=== PATIENT | female | born 1965 | race American Indian/Alaskan Native ===

== ENCOUNTER 2017-02-18 20:50 | Inpatient (IN) | payer MEDICAID, OTHER ==
[2017-02-18 21:51] LABS: BASO % 0.4 % (0.0-2.0); EOS # 0.2 K/uL (0.0-0.7); EOS % 1.6 % (0.0-4.0); HEMATOCRIT 40.8 % (34.0-47.0); LYMPH # 3.5 K/uL (1.0-4.3); LYMPH % 34.4 % (20.0-40.0); MEAN CELL VOLUME 89.7 fL (81.0-99.0); MEAN CORPUSCULAR HGB CONC 32.3 g/dL (33.0-37.0); MONO # 0.7 K/uL (0.0-0.8); MONO % 6.7 % (0.0-10.0); RED CELL DISTRIBUTION WIDTH 12.6 % (11.5-14.5); WHITE BLOOD COUNT 10.1 K/uL (4.8-10.8)
[2017-02-18 22:00] LABS: CHLORIDE 103 mmol/L (98-107); SODIUM 142 mmol/L (132-148)
[2017-02-18 22:03] LABS: CARBON DIOXIDE 25 mmol/L (22-30); GFR AFRICAN-AMERICAN > 60
[2017-02-18 22:04] LABS: ALCOHOL SERUM 10 mg/dl (0-10); BLOOD UREA NITROGEN 16 mg/dL (7-17); CALCIUM 9.4 mg/dl (8.6-10.4); GLUCOSE,RANDOM 97 mg/dL (65-105)
[2017-02-18 23:43] LABS: RBC URINE 2 /hpf (0-3); URINE BILIRUBIN NEGATIVE (NEGATIVE); URINE BLOOD NEGATIVE (NEGATIVE); URINE COLOR Yellow (YELLOW); URINE GLUCOSE (UA) NORMAL (Normal); URINE KETONE NEGATIVE (NEGATIVE); URINE LEUKOCYTE ESTERASE TRACE Leu/uL (Negative); URINE PROTEIN 1+ mg/dL (NEGATIVE); URINE UROBILINOGEN NORMAL mg/dL (0.2-1.0); WBC URINE 8 /hpf (0-5)
--- NOTE | 2017-02-18 23:58 | C.PDOC ---
History Of Present Illness 51 yo female w/PMhx of polysubstance abuse come in request detox. Pt admits, use opiates, xanax, cocaine and alcohol. Last dose was early today. Pt denies any active physical complaints. AAO#3, denies suicidal or homocidal ideation. Ambulate to ED for evaluation, not n any apparent distress. Time Seen by Provider: 02/18/17 21:10 Chief Complaint (Nursing): Substance Abuse History Per: Patient Past Medical History Reviewed: Historical Data, Nursing Documentation, Vital Signs Vital Signs: Last Vital Signs Temp 97.9 F 02/18/17 20:53 Pulse 74 02/18/17 23:56 Resp 20 02/18/17 23:56 BP 141/82 02/18/17 23:56 Pulse Ox 96 02/18/17 23:58 - Medical History PMH: HTN Denies: Diabetes, Hepatitis, HIV, Seizures, Sexually Transmitted Disease Other Surgeries: not contributory Family History: States: No Known Family Hx - Social History Hx Alcohol Use: Yes Hx Substance Use: Yes - Immunization History Hx Tetanus Toxoid Vaccination: No Hx Influenza Vaccination: No Hx Pneumococcal Vaccination: No Review Of Systems Except As Marked, All Systems Reviewed And Found Negative. Constitutional: Negative for: Fever, Chills ENT: Negative for: Throat Pain Cardiovascular: Negative for: Chest Pain, Palpitations Respiratory: Negative for: Cough, Shortness of Breath, SOB with Excertion, Pleuritic Pain, Sputum, Wheezing Gastrointestinal: Negative for: Nausea, Vomiting, Abdominal Pain, Diarrhea, Melena, Hematochezia, Hematemesis, Rectal Pain Genitourinary: Negative for: Dysuria, Frequency, Incontinence Musculoskeletal: Negative for: Neck Pain, Back Pain Skin: Negative for: Bruising Neurological: Negative for: Weakness, Numbness, Altered Mental Status Physical Exam - Physical Exam Appears: Well, Non-toxic, No Acute Distress Skin: Normal Color, Warm, No Rash Head: Atraumatic, Normacephalic Eye(s): bilateral: PERRL Ear(s): Bilateral: Normal Nose: Normal, No Discharge Oral Mucosa: Moist, No Drooling Throat: Normal Neck: Normal, Normal ROM, Supple Chest: Symmetrical Cardiovascular: Rhythm Regular Respiratory: Normal Breath Sounds, No Stridor, No Wheezing Gastrointestinal/Abdominal: Normal Exam, Soft, No Tenderness Back: Normal Inspection, No CVA Tenderness Extremity: Normal ROM, No Pedal Edema, No Deformity Neurological/Psych: Oriented x3, Normal Speech, Normal Motor, Normal Sensation, Normal Reflexes ED Course And Treatment - Laboratory Results Result Diagrams: 02/18/17 21:40 02/18/17 21:40 Lab Interpretation: No Acute Changes Urine POC: Negative O2 Sat by Pulse Oximetry: 96 Pulse Ox Interpretation: Normal Progress Note: On re-evaluation, pt remained stable, afebrile, hemodynamicaly stable. Non-toxic. Ambulatory in ED with stable gait. Neurologicaly intact. Diagnostics review and appears without acute abnormalities. PATIENT IS MEDICALLY CLEARED FOR PES EVALUATION AND FURTHER TREATMENT/DISPOSITION. After pt was seen by PES, admission to offered for detox. Disposition - Disposition Disposition: HOSPITALIZED Disposition Time: 23:30 Condition: STABLE - Clinical Impression Clinical Impression: Drug dependence
[2017-02-19 12:07] LABS: ALB/GLOB RATIO 1.4 (1.0-2.1); ALKALINE PHOSPHATASE 74 U/L (38-126); ALT/SGPT 18 U/L (9-52); AST/SGOT 37 U/L (14-36); BILIRUBIN,DIRECT 0.5 mg/dL (0.0-0.4); BILIRUBIN,TOTAL 0.8 mg/dL (0.2-1.3); TOTAL PROTEIN 7.4 g/dL (6.3-8.3)
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
[2017-02-20 05:53] VITALS: RESP 18
[2017-02-20] MEDS ORDERED: Aluminum Hydroxide/Magnesium Hydroxide Susp (30 mL) PO PRN (10:36)
--- NOTE | 2017-02-20 13:17 | PCM.PYCHPN ---
Psychiatric Progress Note - Psychiatric Progress Note Patient seen today, length of contact: 17 minutes Patient Chief Complaint: "I'm irritable and I don't feel well" Problems Identified/Issues Discussed: The patient is seen, chart reviewed, case discussed Pt reports that she is irritable today and does not want to be around people. She did not sleep last night because she felt nauseous and vomited 2x. She is also complaining of back pain. This morning pt was able to eat breakfast. She says she feels unsteady when walking. She denies any side effects from the medications. Pt spoke about her ovarian cancer diagnosis (now in remission) and how she knows her body and feels like something is wrong now. She says that her energy levels are not the same. Aftercare discussed and pt would like to go to rehab. Denies any S/I. Support and psychoeducation was given. Medication Change: Yes (Methadone and Librium taper) Medical Record Reviewed: Yes Mental Status Examination - Cognitive Function Orientation: Person, Place, Situation, Time Memory: Intact Attention: WNL Concentration: WNL Association: WNL Fund of Knowledge: WNL - Mood Mood: Anxious - Affect Affect: Broad - Speech Speech: Appropriate - Formal Thought Process Formal Thought Process: No Impairment - Suicidal Ideation Suicidal Ideation: No - Homicidal Ideation Homicidal Ideation: No Goal/Treatment Plan - Goal/Treatment Plan Need for Continued Stay: Remain at risks for inpatient hospitalization, Discharge may exacerbated symptoms Progress Toward Problem(s) and Goals/Treatment Plan: Opioid Withdrawal - severe -Methadone taper -CBT -support and education Opioid Use Disorder -Group and Individual therapy -CBT -[place] for abstinence -support and psychoeducation Cocaine Withdrawal -severe -Group and Individual therapy -CBT -support and psychoeducation Cocaine Use Disorder - severe - -Group and Individual therapy - CBT -[place] for abstinence -support and psychoeducation Sedative-Hypnotic Use Withdrawal - Librium taper - as needed medications - support and psychoeducation Sedative-Hypnotic Use Disorder -Group and Individual therapy -CBT -[place] for abstinence -support and psychoeducation Estimated Date of D/C: 02/23/17 - Smoking Cessation Smoking Cessation Initiated: Yes
[2017-02-20] MEDS ORDERED: Magnesium Citrate Oral SOL (300 ml) PO ONE (20:27)
--- NOTE | 2017-02-21 13:15 | PCM.PYCHPN ---
Psychiatric Progress Note - Psychiatric Progress Note Patient seen today, length of contact: 16 minutes Patient Chief Complaint: "I'm feeling better today" Problems Identified/Issues Discussed: The patient is seen, chart reviewed, case discussed Pt reports that her mood has improved. Pt was smiling and laughing. She didn't sleep well last night and was only able to get a few hours. She feels steadier on her feet and denies any nausea and vomiting. Her energy levels are better. She denies any medication side effects. Aftercare was discussed and patient would like to go to rehab. She expressed that she wants her life and career back. She also wants to be there for her children. Support and psychoeducation was given. Medication Change: Yes (Methadone and Librium taper) Medical Record Reviewed: Yes Mental Status Examination - Cognitive Function Orientation: Person, Place, Situation, Time Memory: Intact Attention: WNL Concentration: WNL Association: WNL Fund of Knowledge: WNL - Mood Mood: Neutral - Affect Affect: Broad - Speech Speech: Appropriate - Formal Thought Process Formal Thought Process: No Impairment - Suicidal Ideation Suicidal Ideation: No - Homicidal Ideation Homicidal Ideation: No Goal/Treatment Plan - Goal/Treatment Plan Need for Continued Stay: Remain at risks for inpatient hospitalization, Discharge may exacerbated symptoms Progress Toward Problem(s) and Goals/Treatment Plan: Opioid Withdrawal - severe -Methadone taper -CBT -support and education Opioid Use Disorder -Group and Individual therapy -CBT -[place] for abstinence -support and psychoeducation Cocaine Withdrawal -severe -Group and Individual therapy -CBT -support and psychoeducation Cocaine Use Disorder - severe - Group and Individual therapy - CBT -[place] for abstinence -support and psychoeducation Sedative-Hypnotic Use Withdrawal - Librium taper - as needed medications - support and psychoeducation Sedative-Hypnotic Use Disorder -Group and Individual therapy -CBT -[place] for abstinence -support and psychoeducation Trazodone 100mg for sleep Estimated Date of D/C: 02/23/17
[2017-02-21 13:25] VITALS: BP 151/89; PULSE 92; TEMP 98.4
[2017-02-21 13:51] VITALS: O2SAT 99
--- NOTE | 2017-02-21 19:34 | PCM.PYCHDC ---
Mental Status Examination - Mental Status Examination Orientation: Person, Place, Situation, Time Memory: Intact Mood: Anxious Affect: Constricted Speech: Appropriate Attention: Poor Concentration: Poor Association: WNL Fund of Knowledge: WNL Formal Thought Process: No Impairment Suicidal Ideation: No Current Homicidal Ideation?: No Discharge Summary - Discharge Note Reason for Hospitalization: Heroin detox Psychiatric History (includes Medical, Family, Personal Hx): none Consultations:: List each consultation separately and include: 1. Reason for request. 2. Findings. 3. Follow-up Summary of Hospital Course include:: 1. Description of specific treatment plan utilized for patients during their course of treatmen. 2. Summarize the time- course for resolution of acute symptoms and/or regressed behaviors. 3. Describe issues identified and worked on during hospitalization. 4. Describe medication utilized. 5. Describe medical problems identified and treated. 6. Reassessment of suicide risk Summary of Hospital Course: The pt was admitted and started on treatment with psychotherapy, support, psychoeducation and medications. [place] and CBT used. The pt attended groups and activities, as well as milieu therapy. She was irate and aloof at times All the risks and benefits of medications are discussed and the patient understood and agreed. After care discussed with the patient. She is referred to inpatient rehab and 2 places accepted her to start on [place]; [facility] and [facility] She was first happy and thankful but then she got upset over smt we cannot control (her BP meds could not be filled for 30 days as she had filled them recently and left at home). She was to be dc'ed in AM but she decided to leave [facility]. Risks discussed and she understood. She is warned against jeopardizing her rehab chance. - Final Diagnosis (DSM 5) Condition upon Discharge: STABLE DSM 5: Opioid withdrawal Opioid use d/o - severe Sedative hypnotic use d/o - severe Cocaine use disorder - severe Personality d/o - unspecified Disposition: HOME/ ROUTINE Follow-up Treatment Plan: Continue below medications after discharge. Follow after care plan as discussed, attend rehab on Use relapse prevention skills Return to ER or call 911 if suicidal, homicidal or symptoms relapse. Stay away from stress, alcohol and drugs. Prescriptions/Medication Reconciliation: traZODone [Desyrel] 100 mg PO HS PRN #30 tab PRN Reason: Insomnia - Smoking Cessation Smoking Cessation Medication prescribed: No - Antipsychotic Medications Pt discharged on 2 or more routine antipsychotic medications: No
== END 2017-02-21 17:44 | disposition home or self-care (01) | DRG 745 ==
LOC: C.ER 20:50 → C.7D 02-19 00:17
PROVIDERS: ADMIT Psychiatry & Neurology Psychiatry; ATTEND Psychiatry & Neurology Psychiatry
PROC: HZ2ZZZZ Detoxification Services for Substance Abuse Treatment (ICD-10-PCS; principal; 2017-02-19)
PROC: HZ42ZZZ Group Counseling for Substance Abuse Treatment, Cognitive-Behavioral (ICD-10-PCS; 2017-02-19)
PROC: HZ32ZZZ Individual Counseling for Substance Abuse Treatment, Cognitive-Behavioral (ICD-10-PCS; 2017-02-19)
PROC: HZ59ZZZ Individual Psychotherapy for Substance Abuse Treatment, Supportive (ICD-10-PCS; 2017-02-19)
PROC: HZ46ZZZ Group Counseling for Substance Abuse Treatment, Psychoeducation (ICD-10-PCS; 2017-02-19)
PROC: HZ36ZZZ Individual Counseling for Substance Abuse Treatment, Psychoeducation (ICD-10-PCS; 2017-02-19)
DX: F11.23 Opioid dependence with withdrawal (principal); I10 Essential (primary) hypertension; F14.23 Cocaine dependence with withdrawal; F13.239 Sedative, hypnotic or anxiolytic dependence with withdrawal, unspecified; Z59.0 Homelessness; F60.9 Personality disorder, unspecified

== ENCOUNTER 2017-12-22 20:51 | Inpatient (IN) | payer MEDICAID, OTHER ==
[2017-12-22 21:29] LABS: BASO % 0.5 % (0.0-2.0); EOS # 0.3 K/uL (0.0-0.7); EOS % 3.5 % (0.0-4.0); HEMOGLOBIN 13.9 g/dL (11.0-16.0); LYMPH # 2.6 K/uL (1.0-4.3); LYMPH % 26.7 % (20.0-40.0); MEAN CORPUSCULAR HEMOGLOBIN 30.2 pg (27.0-31.0); MEAN CORPUSCULAR HGB CONC 33.2 g/dL (33.0-37.0); MEAN PLATELET VOLUME 8.2 fL (7.2-11.7); MONO # 0.6 K/uL (0.0-0.8); MONO % 5.9 % (0.0-10.0); NEUT # 6.3 K/uL (1.8-7.0); NEUT % 63.4 % (50.0-75.0); NRBC % 0.1 % (0.0-2.0); RBC 4.59 Mil/uL (3.80-5.20); RED CELL DISTRIBUTION WIDTH 13.5 % (11.5-14.5); WHITE BLOOD COUNT 9.9 K/uL (4.8-10.8)
[2017-12-22 22:07] LABS: ALB/GLOB RATIO 1.3 (1.0-2.1); ALBUMIN 4.4 g/dL (3.5-5.0); ALT/SGPT 16 U/L (9-52); AST/SGOT 27 U/L (14-36); BLOOD UREA NITROGEN 15 mg/dL (7-17); CALCIUM 9.6 mg/dl (8.6-10.4); GFR AFRICAN-AMERICAN > 60; GFR NON-AFRICAN AMERICAN 58
--- NOTE | 2017-12-22 22:15 | C.PDOC ---
History Of Present Illness 52 y/o female presents to ED requesting prescreen for detox. Patient was here last year for the same reason. Admits to Percocet, Heroine, Marijuana, and Cocaine. Denies any physical complaints. Time Seen by Provider: 12/22/17 21:15 Chief Complaint (Nursing): Substance Abuse History Per: Patient History/Exam Limitations: no limitations Onset/Duration Of Symptoms: Hrs Current Symptoms Are (Timing): Still Present Suicide/Self Injury Attempted (Context): None Modifying Factor(s): Marijuana, Cocaine, Other (Percocet and heroine ) Associated Symptoms: denies: Anger, Suicidal Thoughts Involuntary Hold By: None Recent travel outside of the [place]: No Past Medical History Reviewed: Historical Data, Nursing Documentation, Vital Signs Vital Signs: Last Vital Signs Temp 98.3 F 12/22/17 21:05 Pulse 110 H 12/22/17 21:05 Resp 18 12/22/17 21:05 BP 151/90 H 12/22/17 21:05 Pulse Ox 99 12/22/17 22:15 - Medical History PMH: HTN - [facility] DETOXIFICATION SERVICES FOR SUBSTANCE ABUSE TREATMENT (02/19/17) GROUP AUTO DAMAGE ESTIMATOR FOR SUBSTANCE ABUSE TREATMENT, PSYCHOEDUCATION (02/19/17) GROUP AUTO DAMAGE ESTIMATOR FOR SUBSTANCE ABUSE, COGNITIVE BEHAVIORAL (02/19/17) INDIV AUTO DAMAGE ESTIMATOR FOR SUBSTANCE ABUSE TREATMENT, PSYCHOEDUCATION (02/19/17) INDIV AUTO DAMAGE ESTIMATOR FOR SUBSTANCE ABUSE, COGNITIVE BEHAVIORAL (02/19/17) INDIV PSYCHOTHERAPY FOR SUBSTANCE ABUSE TREATMENT, SUPPORT (02/19/17) Family History: States: No Known Family Hx - Social History Hx Alcohol Use: Yes Hx Substance Use: Yes - Immunization History Hx Tetanus Toxoid Vaccination: No Hx Influenza Vaccination: No Hx Pneumococcal Vaccination: No Review Of Systems Constitutional: Negative for: Fever, Chills Cardiovascular: Negative for: Chest Pain, Palpitations Respiratory: Negative for: Shortness of Breath Gastrointestinal: Negative for: Nausea, Vomiting, Abdominal Pain, Diarrhea Neurological: Negative for: Weakness, Numbness Psych: Negative for: Suicidal ideation Physical Exam - Physical Exam Appears: Well, Non-toxic, No Acute Distress Skin: Normal Color, Warm, Dry Head: Atraumatic, Normacephalic Eye(s): bilateral: Normal Inspection Oral Mucosa: Moist Neck: Supple Chest: Symmetrical, No Tenderness Cardiovascular: Rhythm Regular Respiratory: Normal Breath Sounds, No Decreased Breath Sounds, No Rales, No Rhonchi, No Wheezing Gastrointestinal/Abdominal: Soft, No Tenderness, No Distention, No Guarding, No Rebound Neurological/Psych: Oriented x3, Normal Speech, Normal Cognition ED Course And Treatment - Laboratory Results Result Diagrams: 12/22/17 21:27 12/22/17 21:27 Lab Interpretation: Abnormal (tox + cocaine, opiates, cocaine, benzo's, + etoh) O2 Sat by Pulse Oximetry: 99 (RA) Pulse Ox Interpretation: Normal Reevaluation Time: 23:01 Reassessment Condition: Improved Medical Decision Making Medical Decision Making: Ordered blood work and urinalysis. 2300: d/w Crisis, ok to admit to detox Disposition Doctor Will See Patient In The: Hospital Counseled Patient/Family Regarding: Studies Performed, Diagnosis - Disposition Referrals: Elena Ramirez APN [Primary Care Provider] - Disposition: HOSPITALIZED Disposition Time: 23:01 Condition: GOOD Forms: [facility] (Polish) - Clinical Impression Clinical Impression: Polysubstance (including opioids) dependence with physiol dependence - Scribe Statement The provider has reviewed the documentation as recorded by the Scribe Enedelia العراقي All medical record entries made by the Scribe were at my direction and personally dictated by me. I have reviewed the chart and agree that the record accurately reflects my personal performance of the history, physical exam, medical decision making, and the department course for this patient. I have also personally directed, reviewed, and agree with the discharge instructions and disposition.
[2017-12-22 22:20] LABS: HCG,QUALITATIVE URINE NEGATIVE (NEGATIVE)
[2017-12-22 22:23] LABS: SQUAMOUS EPITHIAL 1 /hpf (0-5); URINE BACTERIA OCC (<OCC); URINE BILIRUBIN NEGATIVE (NEGATIVE); URINE BLOOD 1+ (NEGATIVE); URINE CLARITY Hazy (Clear); URINE COLOR Yellow (YELLOW); URINE GLUCOSE (UA) NORMAL (Normal); URINE LEUKOCYTE ESTERASE NEG Leu/uL (Negative); URINE NITRATE NEGATIVE (NEGATIVE); URINE PROTEIN NEGATIVE (NEGATIVE); URINE UROBILINOGEN NORMAL mg/dL (0.2-1.0)
[2017-12-22 22:34] LABS: PHENCYCLIDINE, UR NEGATIVE (NEGATIVE)
[2017-12-22 22:35] LABS: BARBITURATES, UR POSITIVE (NEGATIVE); BENZODIAZEPINES, UR POSITIVE (NEGATIVE); OPIATES, UR POSITIVE (NEGATIVE)
[2017-12-22] MEDS ORDERED: Aluminum Hydroxide/Magnesium Hydroxide Susp (30 mL) PO PRN (23:13)
--- NOTE | 2017-12-22 23:39 | PCM.BM ---
<Evie Palacio - Last Filed: 12/22/17 23:38> Treatment Plan Problems - Problems identified on initial assessmt Ineffective Coping Skills Date Initiated: 12/22/17 Time Initiated: 23:38 Assessment reference: NA Status: Active Treatment assets and liabiliti Patient Assests: ADL independent Patient Liabilities: substance abuse - Milieu Protocol Maintain good personal hygiene: daily Encourage regular showers, daily Remind patient to perform daily oral care, other Assist patient to perform ADL's Maintain personal safety: every shift Educate patient to report safety concerns to staff, every shift Monitor environment for contraband/sharps Medication safety: Monitor for expected outcome, potential side effects: every shift, Assess barriers to learning: every shift, Assess readiness for medication education: every shift <Hima Hernandez - Last Filed: 12/25/17 23:50> - Diagnosis (1) Opioid use disorder, severe, dependence Status: Acute Interventions: 12/25/17 23:50 * Assess 7x/week regarding severity of withdrawal * Educate regarding risks, benefits, side effects and alternatives of medications * Use Motivational Interviewing for abstinence * Use CBT for relapse prevention * Medication management for withdrawal symptoms * Encourage medication assisted treatment *
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
[2017-12-23] MEDS: Multiple Vitamins Tab PO SCH (10:52)
[2017-12-24] MEDS: Multiple Vitamins Tab PO SCH (09:13)
[2017-12-24] MEDS ORDERED: Magnesium Hydroxide Susp 30 ml UD PO ONE (09:17)
--- NOTE | 2017-12-24 12:01 | PCM.PYCHPN ---
Psychiatric Progress Note - Psychiatric Progress Note Patient seen today, length of contact: 15 min Patient Chief Complaint: I came here to get help.' Problems Identified/Issues Discussed: Patient seen and evaluated, chart reviewed and discussed with the nurse. Patient reports improvement in the withdrawal symptoms but still reports nausea , anxiety, and headaches. She reports improvement in her mood and denies any feelings of hopelessness and helplessness. Patient denies any auditory or visual hallucinations, or any psychotic symptoms. She reports improvement in his sleep and appetite. She is tolerating the withdrawal medications and denies any side effects. Supportive therapy and psychoeducation were given. Medication Change: Yes (Librium taper, methadone taper) Medical Record Reviewed: Yes Mental Status Examination - Cognitive Function Orientation: Person, Place, Situation, Time Memory: Intact Attention: WNL Concentration: Poor Association: WNL Fund of Knowledge: Poor - Mood Mood: Anxious - Affect Affect: Constricted - Speech Speech: Soft - Formal Thought Process Formal Thought Process: No Impairment - Suicidal Ideation Suicidal Ideation: No - Homicidal Ideation Homicidal Ideation: No Goal/Treatment Plan - Goal/Treatment Plan Need for Continued Stay: Severe depression anxiety, Severe functional impairment Progress Toward Problem(s) and Goals/Treatment Plan: Alcohol use disorder severe CBT Psychoeducation Supportive therapy, individual therapy Use TX for abstinence Alcohol withdrawal uncomplicated CBT Psychoeducation Supportive therapy, individual therapy Librium when necessary Librium taper Folic acid/thiamine/multivitamin Trazodone 50 mg PO QHS Neurontin 300 mg PO TID Opioid use disorder severe CBT Psychoeducation Supportive therapy, individual therapy Use TX for abstinence Opioid withdrawal CBT Psychoeducation Supportive therapy, individual therapy Clonidine when necessary Methadone taper Cocaine use disorder severe Monitor signs and symptoms Use [place] for abstinence HTN Continue prescribed medications - Smoking Cessation Smoking Cessation Initiated: No
[2017-12-24 13:00] VITALS: RESP 18
[2017-12-25] MEDS: Multiple Vitamins Tab PO SCH (10:24)
[2017-12-25] MEDS: Pantoprazole 20 mg EC Tab PO SCH (10:30)
--- NOTE | 2017-12-25 14:32 | PCM.PYCHPN ---
Psychiatric Progress Note - Psychiatric Progress Note Patient seen today, length of contact: 15 min Patient Chief Complaint: "I'm doing well" Problems Identified/Issues Discussed: The pt is seen, chart reviewed, case discussed with staff. Support given, CBT and VT used briefly Patient reports doing well overall, but does admit to having genralized aches and myalagias as well as some feelings of heart burn associated with eating food. She is otherwise improving slowly and needs more time No SEs from medications, risks discussed. After care discussed Medication Change: Yes (detox changes daily) Medical Record Reviewed: Yes Mental Status Examination - Cognitive Function Orientation: Person, Place, Situation, Time Memory: Intact Attention: WNL Concentration: WNL Association: WNL Fund of Knowledge: WNL - Mood Mood: Anxious - Affect Affect: Constricted - Speech Speech: Soft - Formal Thought Process Formal Thought Process: No Impairment - Suicidal Ideation Suicidal Ideation: No - Homicidal Ideation Homicidal Ideation: No Goal/Treatment Plan - Goal/Treatment Plan Need for Continued Stay: Remain at risks for inpatient hospitalization, Severe depression anxiety, Discharge may exacerbated symptoms, Severe functional impairment Progress Toward Problem(s) and Goals/Treatment Plan: Continue medications Will add Protonix and Maalox prn for acid reflux Support and psychoeducation daily Attend groups and activities daily After care planning by RUFINO Estimated Date of D/C: 12/27/17 - Smoking Cessation Smoking Cessation Initiated: Yes
--- NOTE | 2017-12-25 15:29 | RAD ---
HISTORY: cough COMPARISON: None available. TECHNIQUE: Chest PA and lateral FINDINGS: LUNGS: Mild to moderate interstitial prominence may reflect infection or edema. Please note that chest x-ray has limited sensitivity for the detection of pulmonary masses. PLEURA: No significant pleural effusion identified. No definite pneumothorax . CARDIOVASCULAR: Heart size appears within normal limits. OSSEOUS STRUCTURES: No acute osseous abnormality identified. VISUALIZED UPPER ABDOMEN: Unremarkable. OTHER FINDINGS: None. IMPRESSION: Mild to moderate interstitial prominence may reflect infection or edema.
[2017-12-25] MEDS ORDERED: Magnesium Hydroxide Susp 30 ml UD PO PRN (16:20)
[2017-12-26] MEDS ORDERED: Vitamins A & D Oint UD Foilpak TOP PRN (08:07)
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
[2017-12-26] MEDS: Multiple Vitamins Tab PO SCH (09:15)
[2017-12-26] MEDS: Pantoprazole 20 mg EC Tab PO SCH (09:15)
[2017-12-26 09:20] VITALS: BP 131/84
[2017-12-26 10:02] VITALS: PULSE 93; TEMP 97.7; O2SAT 97
== END 2017-12-26 11:00 | disposition home or self-care (01) | DRG 745 ==
LOC: SUPCPDRO 20:51 → C.ER 20:51 → C.7D 23:02
PROVIDERS: ADMIT Psychiatry & Neurology Psychiatry; ATTEND Psychiatry & Neurology Psychiatry
PROC: HZ2ZZZZ Detoxification Services for Substance Abuse Treatment (ICD-10-PCS; principal; 2017-12-22)
PROC: HZ52ZZZ Individual Psychotherapy for Substance Abuse Treatment, Cognitive-Behavioral (ICD-10-PCS; 2017-12-22)
PROC: HZ42ZZZ Group Counseling for Substance Abuse Treatment, Cognitive-Behavioral (ICD-10-PCS; 2017-12-22)
PROC: HZ59ZZZ Individual Psychotherapy for Substance Abuse Treatment, Supportive (ICD-10-PCS; 2017-12-22)
PROC: HZ56ZZZ Individual Psychotherapy for Substance Abuse Treatment, Psychoeducation (ICD-10-PCS; 2017-12-22)
PROC: HZ46ZZZ Group Counseling for Substance Abuse Treatment, Psychoeducation (ICD-10-PCS; 2017-12-22)
DX: F11.23 Opioid dependence with withdrawal (principal); F13.20 Sedative, hypnotic or anxiolytic dependence, uncomplicated; F10.230 Alcohol dependence with withdrawal, uncomplicated; F14.20 Cocaine dependence, uncomplicated; Y90.2 Blood alcohol level of 40-59 mg/100 ml; K21.9 Gastro-esophageal reflux disease without esophagitis; I10 Essential (primary) hypertension; F17.210 Nicotine dependence, cigarettes, uncomplicated; Z59.0 Homelessness; Z85.43 Personal history of malignant neoplasm of ovary

== ENCOUNTER 2018-03-07 21:44 | Inpatient (IN) | payer MEDICAID, OTHER ==
--- NOTE | 2018-03-07 22:15 | C.PDOC ---
History Of Present Illness The patient presents to the ED requesting alcohol and Xanax detox. Patient reports last use was earlier today. She denies suicidal/homicidal ideation and has no other complaints at this time. Time Seen by Provider: 03/07/18 22:14 History Per: Patient History/Exam Limitations: no limitations Onset/Duration Of Symptoms: Hrs Current Symptoms Are (Timing): Still Present Suicide/Self Injury Attempted (Context): None Modifying Factor(s): Alcohol, Other (Xanax ) Severity: None Pain Scale Rating Of: 0 Associated Symptoms: denies: Suicidal Thoughts, Suicidal Plan Involuntary Hold By: None Recent travel outside of the [place]: No Additional History Per: Patient Past Medical History Reviewed: Historical Data, Nursing Documentation, Vital Signs Vital Signs: Last Vital Signs Temp 98 F 03/07/18 22:17 Pulse 89 03/07/18 22:17 Resp 16 03/07/18 22:17 BP 164/111 H 03/07/18 22:17 Pulse Ox 99 03/07/18 22:59 - Medical History PMH: Fractures, HTN Denies: Diabetes, Hepatitis, HIV, Chronic Kidney Disease, Seizures, Sexually Transmitted Disease Surgical History: No Surg Hx - [facility] Procedures DETOXIFICATION SERVICES FOR SUBSTANCE ABUSE TREATMENT (12/22/17) GROUP [facility] FOR SUBSTANCE ABUSE TREATMENT, PSYCHOEDUCATION (12/22/17) GROUP [facility] FOR SUBSTANCE ABUSE, COGNITIVE BEHAVIORAL (12/22/17) INDIV CR[facility]HE[facility] FOR SUBSTANCE ABUSE TREATMENT, PSYCHOEDUCATION (02/19/17) INDIV CROCHETER HAND FOR SUBSTANCE ABUSE, COGNITIVE BEHAVIORAL (02/19/17) INDIV PSYCHOTHERAPY FOR SUBSTANCE ABUSE TREATMENT, SUPPORT (12/22/17) INDIV PSYCHOTHERAPY FOR SUBSTANCE ABUSE, COGNITIV BEHAVIORAL (12/22/17) INDIV PSYCHOTHERAPY FOR SUBSTANCE ABUSE, PSYCHOEDUCATION (12/22/17) Family History: States: Unknown Family Hx - Social History Hx Alcohol Use: Yes Hx Substance Use: Yes - Immunization History Hx Tetanus Toxoid Vaccination: No Hx Influenza Vaccination: No Hx Pneumococcal Vaccination: No Review Of Systems Constitutional: Negative for: Fever, Chills Cardiovascular: Negative for: Chest Pain, Palpitations Respiratory: Negative for: Cough, Shortness of Breath Gastrointestinal: Negative for: Nausea, Vomiting, Abdominal Pain Skin: Negative for: Rash, Lesions, Jaundice, Bruising Psych: Positive for: Other (alcohol and xanax detox). Negative for: Anxiety, Depression, Suicidal ideation Physical Exam - Physical Exam Appears: Non-toxic, No Acute Distress Skin: Warm, Dry Head: Normacephalic Eye(s): bilateral: Normal Inspection Oral Mucosa: Moist Neck: Supple Chest: Symmetrical, No Deformity, No Tenderness Cardiovascular: Rhythm Regular, No Murmur Respiratory: No Accessory Muscle Use Extremity: Normal ROM, Capillary Refill (less than 2 seconds ) Neurological/Psych: Oriented x3 ED Course And Treatment - Laboratory Results Result Diagrams: 03/07/18 19:30 03/07/18 19:30 O2 Sat by Pulse Oximetry: 99 (on RA) Pulse Ox Interpretation: Normal Progress Note: Bloodwork and urinalysis ordered and reviewed. Disposition Discussed With Dr.: Jared Manzo Comment: accepeted the pt on his service and took over the care at 12:12 AM Doctor Will See Patient In The: Hospital Counseled Patient/Family Regarding: Studies Performed, Diagnosis - Disposition Disposition: HOSPITALIZED Disposition Time: 22:15 Condition: FAIR - POA Present On Arrival: None - Clinical Impression Clinical Impression: Alcohol intoxication, Alcohol abuse - Scribe Statement The provider has reviewed the documentation as recorded by the Scribe (Carolynn Liu) Provider Attestation: All medical record entries made by the Scribe were at my direction and personally dictated by me. I have reviewed the chart and agree that the record accurately reflects my personal performance of the history, physical exam, medical decision making, and the department course for this patient. I have also personally directed, reviewed, and agree with the discharge instructions and disposition. Decision To Admit - Pt Status Changed To: Hospital Disposition Of: Inpatient - Admit Certification Admit to Inpatient:: After my assessment, the patient will require hospitalization for at least two midnights. This is because of the severity of symptoms shown, intensity of services needed, and/or the medical risk in this patient being treated as an outpatient. - InPatient: Physician Admission Certification: I certify that this patient requires 2 or more midnights of care for the following reason:: After my assessment, the patient will require hospitalization for at least two midnights. This is because of the severity of symptoms shown, intensity of services needed, and/or the medical risk in this patient being treated as an outpatient. - . Bed Request Type: Detox Admitting Physician: Jared Manzo Patient Diagnosis: Alcohol intoxication, Alcohol abuse
[2018-03-07 22:16] VITALS: BMI 28.7
[2018-03-07 22:45] LABS: BASO # 0.1 K/uL (0.0-0.2); BASO % 0.8 % (0.0-2.0); EOS # 0.2 K/uL (0.0-0.7); EOS % 2.9 % (0.0-4.0); HEMOGLOBIN 13.9 g/dL (11.0-16.0); LYMPH % 43.2 % (20.0-40.0); MEAN CELL VOLUME 92.6 fL (81.0-99.0); MEAN CORPUSCULAR HEMOGLOBIN 31.4 pg (27.0-31.0); MEAN CORPUSCULAR HGB CONC 33.9 g/dL (33.0-37.0); MEAN PLATELET VOLUME 7.7 fL (7.2-11.7); MONO # 0.4 K/uL (0.0-0.8); MONO % 6.1 % (0.0-10.0); NEUT # 3.2 K/uL (1.8-7.0); RBC 4.42 Mil/uL (3.80-5.20); RED CELL DISTRIBUTION WIDTH 13.4 % (11.5-14.5); WHITE BLOOD COUNT 6.9 K/uL (4.8-10.8)
[2018-03-07 22:49] LABS: HCG,QUALITATIVE URINE NEGATIVE (NEGATIVE)
[2018-03-07 22:53] LABS: SQUAMOUS EPITHIAL 3 /hpf (0-5); URINE BACTERIA OCC (<OCC); URINE BILIRUBIN NEGATIVE (NEGATIVE); URINE CLARITY Clear (Clear); URINE COLOR Yellow (YELLOW); URINE GLUCOSE (UA) NORMAL (Normal); URINE LEUKOCYTE ESTERASE NEG Leu/uL (Negative); URINE PROTEIN NEGATIVE (NEGATIVE); URINE UROBILINOGEN NORMAL mg/dL (0.2-1.0)
[2018-03-07 22:57] LABS: ALB/GLOB RATIO 1.2 (1.0-2.1); ALBUMIN 4.1 g/dL (3.5-5.0); ALT/SGPT 28 U/L (9-52); AST/SGOT 36 U/L (14-36); BLOOD UREA NITROGEN 10 mg/dL (7-17); CALCIUM 9.5 mg/dl (8.6-10.4); GFR AFRICAN-AMERICAN > 60; GFR NON-AFRICAN AMERICAN > 60
[2018-03-07 23:01] LABS: BARBITURATES, UR NEGATIVE (NEGATIVE); BENZODIAZEPINES, UR NEGATIVE (NEGATIVE); OPIATES, UR NEGATIVE (NEGATIVE); PHENCYCLIDINE, UR NEGATIVE (NEGATIVE)
[2018-03-07 23:07] LABS: URINE BLOOD TRACE (NEGATIVE)
[2018-03-08] MEDS ORDERED: Aluminum Hydroxide/Magnesium Hydroxide Susp (30 mL) PO PRN (11:23)
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
--- NOTE | 2018-03-08 14:36 | PCM.BM ---
<TianaErrol - Last Filed: 03/08/18 14:34> Treatment Plan Problems - Problems identified on initial assessmt potential for alcohol withdrawal Date Initiated: 03/08/18 Time Initiated: 14:35 Status: Active Treatment assets and liabiliti Patient Assests: cooperative, ADL independent, negotiates basic needs Patient Liabilities: substance abuse, medical problems - Milieu Protocol Maintain good personal hygiene: daily Encourage regular showers, daily Remind patient to perform daily oral care, daily Assist patient to perform ADL's Conduct patient checks and document Observation sheet: Q15 minutes Maintain personal safety: every shift Educate patient to report safety concerns to staff, every shift Monitor environment for contraband/sharps Medication safety: Monitor for expected outcome, potential side effects: every shift, Assess barriers to learning: every shift, Assess readiness for medication education: every shift Milieu Narrative: Alcohol: CBT/[place] Psychoeducation Supportive therapy, individual therapy Librium taper Folic acid/thiamine/multivitamin Trazodone Neurontin Opioids: CBT/[place] Psychoeducation Supportive therapy, individual therapy Cocaine: Monitor signs and symptoms Use [place] for abstinence sedative/hypnotic use disorder: Monitor signs and symptoms Use [place] for abstinence Gabapentin HTN Continue prescribed medications 33 min Discharge/Continuing Care - Treatment Team Participation Patient/Family/SO Statement: Alcohol: CBT/[place] Psychoeducation Supportive therapy, individual therapy Librium taper Folic acid/thiamine/multivitamin Trazodone Neurontin Opioids: CBT/[place] Psychoeducation Supportive therapy, individual therapy Cocaine: Monitor signs and symptoms Use [place] for abstinence sedative/hypnotic use disorder: Monitor signs and symptoms Use [place] for abstinence Gabapentin HTN Continue prescribed medications 33 min <Hima Hernandez - Last Filed: 03/10/18 10:11> - Diagnosis (1) Alcohol abuse Status: Acute Interventions: 03/10/18 10:11 * Assess 7x/week regarding severity of withdrawal * Educate regarding risks, benefits, side effects and alternatives of medications * Use Motivational Interviewing for abstinence * Use CBT for relapse prevention * Medication management for withdrawal symptoms * Encourage medication assisted treatment * (2) Opioid use disorder, severe, dependence Status: Acute Interventions: 03/10/18 10:11 * Assess 7x/week regarding severity of withdrawal * Educate regarding risks, benefits, side effects and alternatives of medications * Use Motivational Interviewing for abstinence * Use CBT for relapse prevention * Medication management for withdrawal symptoms * Encourage medication assisted treatment *
[2018-03-08] MEDS: Vitamins A & D Oint UD Foilpak TOP SCH (17:23)
[2018-03-08] MEDS: Hydrocortisone 1% Cream (30 GM) TOP SCH (18:43)
[2018-03-09] MEDS: Hydrocortisone 1% Cream (30 GM) TOP SCH ×2 (10:02→17:16)
[2018-03-09] MEDS: Vitamins A & D Oint UD Foilpak TOP SCH ×2 (10:03→17:20)
--- NOTE | 2018-03-09 13:40 | PCM.PYCHPN ---
Psychiatric Progress Note - Psychiatric Progress Note Patient seen today, length of contact: 16 min Patient Chief Complaint: "I have muscle pain, spasms, anxiety" Problems Identified/Issues Discussed: The pt is seen, chart reviewed, case discussed with staff. Support given, CBT and [place] used briefly No new symptoms reported, improving slowly and needs more time She has many somatic complaints No SEs from medications, risks discussed. After care discussed Medication Change: Yes (detox changes daily) Medical Record Reviewed: Yes Mental Status Examination - Cognitive Function Orientation: Person, Place, Situation, Time Memory: Intact Attention: WNL Concentration: Poor Association: WNL Fund of Knowledge: WNL - Mood Mood: Depressed, Anxious - Affect Affect: Constricted - Speech Speech: Appropriate - Formal Thought Process Formal Thought Process: No Impairment - Suicidal Ideation Suicidal Ideation: No - Homicidal Ideation Homicidal Ideation: No Goal/Treatment Plan - Goal/Treatment Plan Need for Continued Stay: Discharge may exacerbated symptoms, Severe functional impairment Progress Toward Problem(s) and Goals/Treatment Plan: Alcohol: CBT/[place] Psychoeducation Supportive therapy, individual therapy Librium taper Folic acid/thiamine/multivitamin Trazodone Neurontin Opioids: CBT/[place] Psychoeducation Supportive therapy, individual therapy Cocaine: Monitor signs and symptoms Use [place] for abstinence sedative/hypnotic use disorder: Monitor signs and symptoms Use [place] for abstinence Gabapentin HTN Continue prescribed medications
[2018-03-09] MEDS: Multiple Vitamins Tab PO SCH (14:12)
[2018-03-10] MEDS: Multiple Vitamins Tab PO SCH (09:19)
[2018-03-10] MEDS: Hydrocortisone 1% Cream (30 GM) TOP SCH ×2 (09:20→18:16)
[2018-03-10] MEDS: Vitamins A & D Oint UD Foilpak TOP SCH ×2 (09:46→18:16)
--- NOTE | 2018-03-10 17:52 | PCM.PYCHPN ---
Psychiatric Progress Note - Psychiatric Progress Note Patient seen today, length of contact: 16 min Patient Chief Complaint: "I have itching" Problems Identified/Issues Discussed: The pt is seen, chart reviewed, case discussed with staff. The pt is compliant with medications and reports no side-effects. Pt stated Methadone is helping her in withdrawal symptoms. Symptoms are improving but needs more time to stabilize. Pt reported that she has itching and need treatment. After care discussed, support and psychoeducation given. DSM 5 Symptoms Update: Alcohol use disorder severe Alcohol withdrawal uncomplicated Opioid use disorder severe, in early remission Cocaine use disorder severe, in early remission Sedative/hypnotic use disorder - mild HTN LBP Medication Change: Yes (detox changes daily) Medical Record Reviewed: Yes Mental Status Examination - Cognitive Function Orientation: Person, Place, Situation, Time Memory: Intact Attention: WNL Concentration: Poor Association: WNL Fund of Knowledge: WNL Decription of patient's judgement and insights: good/good - Mood Mood: Depressed, Anxious - Affect Affect: Constricted - Speech Speech: Appropriate - Formal Thought Process Formal Thought Process: No Impairment Psychotic Thoughts and Behaviors: denied - Suicidal Ideation Suicidal Ideation: No Plan: denied - Homicidal Ideation Homicidal Ideation: No Plan: denied Goal/Treatment Plan - Goal/Treatment Plan Need for Continued Stay: Discharge may exacerbated symptoms, Severe functional impairment Progress Toward Problem(s) and Goals/Treatment Plan: Librium detox Gabapentin for augmentation and rest leg As needed meds and vitamins Attend groups and activities [place] for abstinence and CBT for relapse prevention Support and psychoeducation Estimated Date of D/C: 03/13/18
[2018-03-10] MEDS: Magnesium Hydroxide Susp 30 ml UD PO PRN (20:58)
[2018-03-11] MEDS: Multiple Vitamins Tab PO SCH (10:00)
[2018-03-11] MEDS: Vitamins A & D Oint UD Foilpak TOP SCH ×2 (10:01→17:58)
[2018-03-11] MEDS: Hydrocortisone 1% Cream (30 GM) TOP SCH ×2 (10:06→17:57)
[2018-03-11] MEDS ORDERED: Pneumococcal 23-Valent Vaccine IM ONE (10:15)
--- NOTE | 2018-03-11 13:13 | RAD ---
HISTORY: discharge instructions COMPARISON: December 25, 2017. TECHNIQUE: Chest PA and lateral FINDINGS: LUNGS: Persistent increased interstitial markings likely interstitial lung disease of uncertain etiology. Tiny calcified granuloma less than 3 mm left upper lobe. PLEURA: No significant pleural effusion identified. No pneumothorax apparent. CARDIOVASCULAR: Normal. OSSEOUS STRUCTURES: No significant abnormalities. VISUALIZED UPPER ABDOMEN: Normal. OTHER FINDINGS: None. IMPRESSION: No significant interval change compared to the prior examination(s).
--- NOTE | 2018-03-11 14:33 | PCM.PYCHPN ---
Psychiatric Progress Note - Psychiatric Progress Note Patient seen today, length of contact: 16 min Patient Chief Complaint: "I'm getting better" Problems Identified/Issues Discussed: The pt is seen, chart reviewed, case discussed with staff. The pt is compliant with medications and reports no side-effects. Pt stated Librium is helping her in withdrawal symptoms. Symptoms are improving but needs more time to stabilize. Pt reported that she has itching and need treatment. After care discussed, support and psychoeducation given. DSM 5 Symptoms Update: Alcohol use disorder, severe, dependence Alcohol withdrawal Medication Change: Yes (detox changes daily) Medical Record Reviewed: Yes Mental Status Examination - Cognitive Function Orientation: Person, Place, Situation, Time Memory: Intact Attention: WNL Concentration: Poor Association: WNL Fund of Knowledge: WNL Decription of patient's judgement and insights: good/good Addtional comments: Calm and cooperative - Mood Mood: Anxious - Affect Affect: Constricted - Speech Speech: Appropriate - Formal Thought Process Formal Thought Process: No Impairment Psychotic Thoughts and Behaviors: denied - Suicidal Ideation Suicidal Ideation: No Plan: denied - Homicidal Ideation Homicidal Ideation: No Plan: denied Goal/Treatment Plan - Goal/Treatment Plan Need for Continued Stay: Discharge may exacerbated symptoms, Severe functional impairment Progress Toward Problem(s) and Goals/Treatment Plan: Librium detox Gabapentin for augmentation and rest leg As needed meds and vitamins Attend groups and activities [place] for abstinence and CBT for relapse prevention Support and psychoeducation Estimated Date of D/C: 03/13/18 - Smoking Cessation Smoking Cessation Initiated: Yes
--- NOTE | 2018-03-11 15:00 | CP.PCM.PCO ---
Physician Communication Note - Physician Communication Note Physician Communication Note: Please see note above
[2018-03-11] MEDS: Magnesium Hydroxide Susp 30 ml UD PO PRN (21:01)
[2018-03-12] MEDS: Multiple Vitamins Tab PO SCH (09:19)
[2018-03-12] MEDS: Vitamins A & D Oint UD Foilpak TOP SCH ×2 (09:19→17:18)
[2018-03-12] MEDS: Hydrocortisone 1% Cream (30 GM) TOP SCH ×2 (09:20→17:06)
--- NOTE | 2018-03-12 13:50 | PCM.PYCHPN ---
Psychiatric Progress Note - Psychiatric Progress Note Patient seen today, length of contact: 16 min Patient Chief Complaint: "I am the same" Problems Identified/Issues Discussed: The pt is seen, chart reviewed, case discussed with staff. The pt is compliant with medications and reports no side-effects. Symptoms are improving but needs more time to stabilize. After care discussed, support and psychoeducation given. Still c/o muscle pain and asks for some "libriums" after she leaves here Medication Change: Yes (detox changes daily) Medical Record Reviewed: Yes Mental Status Examination - Cognitive Function Orientation: Person, Place, Situation, Time Memory: Intact Attention: WNL Concentration: Poor Association: WNL Fund of Knowledge: WNL - Mood Mood: Anxious - Affect Affect: Constricted - Speech Speech: Appropriate - Formal Thought Process Formal Thought Process: No Impairment - Suicidal Ideation Suicidal Ideation: No - Homicidal Ideation Homicidal Ideation: No Goal/Treatment Plan - Goal/Treatment Plan Need for Continued Stay: Discharge may exacerbated symptoms, Severe functional impairment Progress Toward Problem(s) and Goals/Treatment Plan: Alcohol: CBT/[place] Psychoeducation Supportive therapy, individual therapy Librium taper Folic acid/thiamine/multivitamin Trazodone Neurontin Opioids: CBT/[place] Psychoeducation Supportive therapy, individual therapy Cocaine: Monitor signs and symptoms Use [place] for abstinence sedative/hypnotic use disorder: Monitor signs and symptoms Use [place] for abstinence Gabapentin HTN Continue prescribed medications Estimated Date of D/C: 03/13/18
[2018-03-13 08:45] VITALS: BP 116/78; PULSE 90; RESP 21; TEMP 97.7; O2SAT 97
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
[2018-03-13] MEDS: Multiple Vitamins Tab PO SCH (09:03)
[2018-03-13] MEDS: Vitamins A & D Oint UD Foilpak TOP SCH (09:03)
[2018-03-13] MEDS: Hydrocortisone 1% Cream (30 GM) TOP SCH (09:04)
== END 2018-03-13 09:30 | disposition home or self-care (01) | DRG 745 ==
LOC: C.ER 21:44 → C.7D 03-08 00:11
PROVIDERS: ADMIT Psychiatry & Neurology Psychiatry; ATTEND Psychiatry & Neurology Psychiatry
PROC: HZ2ZZZZ Detoxification Services for Substance Abuse Treatment (ICD-10-PCS; principal; 2018-03-08)
PROC: HZ52ZZZ Individual Psychotherapy for Substance Abuse Treatment, Cognitive-Behavioral (ICD-10-PCS; 2018-03-08)
PROC: HZ59ZZZ Individual Psychotherapy for Substance Abuse Treatment, Supportive (ICD-10-PCS; 2018-03-08)
PROC: HZ56ZZZ Individual Psychotherapy for Substance Abuse Treatment, Psychoeducation (ICD-10-PCS; 2018-03-08)
PROC: HZ42ZZZ Group Counseling for Substance Abuse Treatment, Cognitive-Behavioral (ICD-10-PCS; 2018-03-08)
PROC: HZ46ZZZ Group Counseling for Substance Abuse Treatment, Psychoeducation (ICD-10-PCS; 2018-03-08)
DX: F10.230 Alcohol dependence with withdrawal, uncomplicated (principal); F11.21 Opioid dependence, in remission; F13.10 Sedative, hypnotic or anxiolytic abuse, uncomplicated; F14.21 Cocaine dependence, in remission; F17.210 Nicotine dependence, cigarettes, uncomplicated; M51.26 Other intervertebral disc displacement, lumbar region; I10 Essential (primary) hypertension; Z59.0 Homelessness; Y90.8 Blood alcohol level of 240 mg/100 ml or more; Z85.43 Personal history of malignant neoplasm of ovary